=== PATIENT | male | born 1945 | race Caucasian/White ===

== ENCOUNTER 2016-04-09 13:57 | Inpatient (IN) | payer MEDICARE, OTHER ==
--- NOTE | 2016-04-09 14:37 | ER Document Report ---
ED Medical Screen (RME) - General Stated Complaint: VOMITING,CHILLS Notes: chills, fever, and vomiting that started this afternoon emesis x2, no hematemesis but evidence of hematochezia on plavix for previous CVA x3 most recently one year ago I have greeted and performed a rapid initial assessment of this patient. A comprehensive ED assessment and evaluation of the patient, analysis of test results and completion of the medical decision making process will be conducted by additional ED providers. TRAVEL OUTSIDE OF THE [place] IN LAST 30 DAYS: No - Related Data Allergies/Adverse Reactions: No Known Allergies Allergy (Verified 10/26/12 14:14) Past Medical History - Past Medical History Cardiac Medical History: Reports: Hx Hypercholesterolemia, Hx Hypertension Pulmonary Medical History: Reports: Hx COPD Neurological Medical History: Reports: Hx Cerebrovascular Accident Psychiatric Medical History: Reports: Hx Depression Past Surgical History: Reports: Hx Orthopedic Surgery - Back and neck surgery - Immunizations Hx Diphtheria, Pertussis, Tetanus Vaccination: Yes
[2016-04-09 14:59] LABS: HEMOGLOBIN 15.9 g/dL (13.5-17.0); HGB HCT DIFFERENCE -0.3; MEAN CORPUSCULAR HEMOGLOBIN 30.6 pg (27.0-33.4); MEAN CORPUSCULAR HGB CONC 33.1 g/dL (32.0-36.0); MEAN CORPUSCULAR VOLUME 93 fl (80-97); RED BLOOD COUNT 5.19 10^6/uL (4.35-5.55); RED CELL DISTRIBUTION WIDTH 14.5 % (11.5-14.0); WHITE BLOOD COUNT 13.2 10^3/uL (4.0-10.5)
[2016-04-09 15:05] LABS: PARTIAL THROMBOPLASTIN TIME 22.9 SEC (23.5-35.8); PROTHROMBIN TIME 13.6 SEC (11.4-15.4)
[2016-04-09 15:20] LABS: ALANINE AMINOTRANSFERASE 25 U/L (21-72); ALBUMIN 4.6 g/dL (3.5-5.0); ALKALINE PHOSPHATASE 96 U/L (38-126); ANION GAP 12 (5-19); ASPARTATE AMINO TRANSFERASE 17 U/L (17-59); BILIRUBIN,TOTAL 0.9 mg/dL (0.2-1.3); BLOOD UREA NITROGEN 22 mg/dL (7-20); CALCIUM 9.5 mg/dL (8.4-10.2); CARBON DIOXIDE 27 mmol/L (22-30); CHLORIDE 107 mmol/L (98-107); CREATININE RESULT 1.12 mg/dL (0.52-1.25); GLUCOSE 112 mg/dL (75-110); POTASSIUM 4.1 mmol/L (3.6-5.0); SODIUM 146.2 mmol/L (137-145); TOTAL PROTEIN 7.4 g/dL (6.3-8.2)
[2016-04-09 15:30] LABS: ANISOCYTOSIS SLIGHT; BAND NEUTROPHILS % (MANUAL) 9 % (3-5); BASOPHILS % (MANUAL) 0 % (0-2); BURR CELLS SLIGHT; EOSINOPHILS % (MANUAL) 1 % (0-6); LYMPHOCYTES % (MANUAL) 7 % (13-45); TOTAL CELLS COUNTED 100; TOXIC GRANULATION 1+
[2016-04-09] MEDS ORDERED: ONDANSETRON 4 MG TAB.RAPDIS PO ONE (17:30)
[2016-04-09] MEDS ORDERED: NORMAL SALINE 1000 ML 1,000 ML IV ONE (18:07)
--- NOTE | 2016-04-09 18:22 | ER Document Report ---
ED General - General Time seen by provider: 18:02 Mode of Arrival: Ambulatory Information source: Patient, Relative - spouse TRAVEL OUTSIDE OF THE [place] IN LAST 30 DAYS: No - HPI Onset: Other - see HPI note Associated symptoms: Chills, Nausea, Vomiting <ARTURO DENSON - Last Filed: 04/09/16 18:15> <FATUMA RODRIGEZ - Last Filed: 04/09/16 19:50> - General Chief Complaint: Nausea/Vomiting Stated Complaint: VOMITING,CHILLS Notes: Patient is a 70 year old male presenting to the emergency department complaining of chills, nausea, and vomiting. Patient states he vomited x2 and his symptoms were onset at 13:00 today. Patient states he is not nauseous at time of exam. Patient denies any constipation or abdominal pain. Patient is on Plavix. Patient has had 3. Strokes is dysphasic. Patient also has a history of hypertension, hypercholesterolemia, COPD, depression, and Parkinson's disease. Patient has no known allergies. (ARTURO DENSON) - Related Data Allergies/Adverse Reactions: No Known Allergies Allergy (Verified 04/09/16 14:36) Past Medical History - General Information source: Patient, Relative - spouse - Social History Smoking Status: Never Smoker Cigarette use (# per day): No Chew tobacco use (# tins/day): No Frequency of alcohol use: None Drug Abuse: None Family History: Reviewed & Not Pertinent, Hypertension Patient has suicidal ideation: No Patient has homicidal ideation: No - Medical History Medical History: Other - Parkinson's disease - Past Medical History Cardiac Medical History: Reports: Hx Hypercholesterolemia, Hx Hypertension Pulmonary Medical History: Reports: Hx COPD Neurological Medical History: Reports: Hx Cerebrovascular Accident - x3 Psychiatric Medical History: Reports: Hx Depression Past Surgical History: Reports: Hx Orthopedic Surgery - Back and neck surgery - Immunizations Hx Diphtheria, Pertussis, Tetanus Vaccination: Yes Hx Pneumococcal Vaccination: 11/22/14 <ARTURO DENSON - Last Filed: 04/09/16 18:15> Review of Systems - Review of Systems Constitutional: See HPI, Chills EENT: No symptoms reported Cardiovascular: No symptoms reported Respiratory: No symptoms reported Gastrointestinal: See HPI, Nausea, Vomiting. denies: Abdominal pain, Constipation Genitourinary: No symptoms reported Male Genitourinary: No symptoms reported Musculoskeletal: No symptoms reported Skin: No symptoms reported Hematologic/Lymphatic: No symptoms reported Neurological/Psychological: No symptoms reported -: Yes All other systems reviewed and negative <ARTURO DENSON - Last Filed: 04/09/16 18:15> Physical Exam - Vital signs Interpretation: Tachycardic - General General appearance: Appears well, Alert In distress: Mild - HEENT Head: Normocephalic, Atraumatic Eyes: Normal Pupils: PERRL Mucous membranes: Moist - Respiratory Respiratory status: No respiratory distress Chest status: Nontender Breath sounds: Normal Chest palpation: Normal - Cardiovascular Rhythm: Regular, Tachycardia Heart sounds: Normal auscultation Murmur: No - Abdominal Inspection: Normal Distension: No distension Bowel sounds: Normal Tenderness: Nontender, Other - Resonant to percussion Organomegaly: No organomegaly - Back Back: Normal, Nontender - Extremities General upper extremity: Normal inspection, Normal ROM, Normal strength General lower extremity: Normal inspection, Normal ROM, Normal strength. No: Edema - Neurological Neuro grossly intact: Yes Cognition: Normal Orientation: AAOx4 [place] Coma Scale Eye Opening: Spontaneous [place] Coma Scale Verbal: Oriented [place] Coma Scale Motor: Obeys Commands [place] Coma Scale Total: 15 Speech: Normal - Psychological Associated symptoms: Normal affect, Normal mood - Skin Skin Temperature: Warm Skin Moisture: Dry <ARTURO DENSON - Last Filed: 04/09/16 18:15> Course - Laboratory Result Diagrams: 04/09/16 14:40 04/09/16 14:40 <ARTURO DENSON - Last Filed: 04/09/16 18:15> - Laboratory Result Diagrams: 04/09/16 14:40 04/09/16 14:40 <FATUMA RODRIGEZ - Last Filed: 04/09/16 19:50> - Vital Signs Vital signs: Temp Pulse Resp BP Pulse Ox 98.6 F 94 16 139/73 H 94 04/09/16 18:22 04/09/16 18:22 04/09/16 18:22 04/09/16 18:22 04/09/16 18:22 (ARTURO DENSON) (FATUMA RODRIGEZ) - Laboratory Laboratory results interpreted by me: 04/09/16 04/09/16 04/09/16 14:40 14:40 14:40 WBC 13.2 H RDW 14.5 H Seg Neuts % (Manual) 80 H Band Neutrophils % 9 H Lymphocytes % (Manual) 7 L Monocytes % (Manual) 1 L Abs Neuts (Manual) 11.7 H APTT 22.9 L Sodium 146.2 H BUN 22 H Glucose 112 H (ARTURO DENSON) (FATUMA RODRIGEZ) Discharge <ARTURO DENSON - Last Filed: 04/09/16 18:15> - [place]charge [place] [facility] [place] Ad[place] [facility] <FATUMA RODRIGEZ - Last Filed: 04/09/16 19:50> - Discharge Clinical Impression: Pneumonia Qualifiers: Pneumonia type: due to unspecified organism Laterality: right Lung location: lower lobe of lung Qualified Code(s): J18.1 - Lobar pneumonia, unspecified organism Leukocytosis Qualifiers: Leukocytosis type: bandemia Qualified Code(s): D72.825 - Bandemia Fever Qualifiers: Fever type: unspecified Qualified Code(s): R50.9 - Fever, unspecified Condition: Stable Disposition: ADMITTED INPATIENT Scribe Attestation: 04/09/16 19:50 I personally performed the services described in the documentation, reviewed and edited the documentation which was dictated to the scribe in my presence, and it accurately records my words and actions. (FATUMA RODRIGEZ) Scribe Documentation - Scribe Written by Luis Eduardo:: Arturo Denson 04/09/16 18:27 acting as scribe for :: Subhash <ARTURO DENSON - Last Filed: 04/09/16 18:15>
[2016-04-09] MEDS ORDERED: PIPERACILLIN/TAZOBACTAM 3.375 GM VIAL IV ONE (19:44)
[2016-04-09] MEDS ORDERED: AZITHROMYCIN INJ 500 MG VIAL IV ONE (19:45)
[2016-04-09] MEDS ORDERED: CEFTRIAXONE 1 GM/D5W RTU 50 ML IV ONE (19:48)
[2016-04-09] MEDS ORDERED: ACETAMINOPHEN 325 MG TABLET PO ONE (19:50)
[2016-04-10] MEDS ORDERED: ACETAMINOPHEN 325 MG TABLET PO PRN (01:54)
[2016-04-10] MEDS ORDERED: DOCUSATE SODIUM 100 MG CAPSULE PO PRN (01:59)
[2016-04-10 02:19] LABS: MEAN CORPUSCULAR VOLUME 93 fl (80-97)
[2016-04-10 02:30] LABS: ALANINE AMINOTRANSFERASE 29 U/L (21-72); ALKALINE PHOSPHATASE 60 U/L (38-126); ANION GAP 8 (5-19); ASPARTATE AMINO TRANSFERASE 13 U/L (17-59); BILIRUBIN,TOTAL 0.9 mg/dL (0.2-1.3); BLOOD UREA NITROGEN 25 mg/dL (7-20); CALCIUM 8.2 mg/dL (8.4-10.2); CARBON DIOXIDE 26 mmol/L (22-30); CHLORIDE 107 mmol/L (98-107); CHOLESTEROL 116.57 mg/dL (0-200); CREATININE RESULT 1.03 mg/dL (0.52-1.25); Direct HDL 53 mg/dL (>40); GLUCOSE 104 mg/dL (75-110); POTASSIUM 4.1 mmol/L (3.6-5.0); SODIUM 140.7 mmol/L (137-145); TOTAL PROTEIN 5.9 g/dL (6.3-8.2); TRIGLYCERIDES 55 mg/dL (<150)
[2016-04-10 02:41] LABS: DIRECT LDL 42 mg/dL (<100)
[2016-04-10 03:19] LABS: HEMATOCRIT 39.9 % (37.9-51.0); HGB HCT DIFFERENCE -0.6; MEAN CORPUSCULAR HEMOGLOBIN 30.4 pg (27.0-33.4); RED BLOOD COUNT 4.31 10^6/uL (4.35-5.55); WHITE BLOOD COUNT 20.5 10^3/uL (4.0-10.5)
[2016-04-10 03:20] LABS: HEMOGLOBIN 13.1 g/dL (13.5-17.0); MEAN CORPUSCULAR HGB CONC 32.9 g/dL (32.0-36.0); RED CELL DISTRIBUTION WIDTH 14.5 % (11.5-14.0)
[2016-04-10 03:24] LABS: BAND NEUTROPHILS % (MANUAL) 3 % (3-5); BASOPHILS % (MANUAL) 0 % (0-2); EOSINOPHILS % (MANUAL) 1 % (0-6); LYMPHOCYTES % (MANUAL) 7 % (13-45); TOTAL CELLS COUNTED 100
[2016-04-10 03:25] LABS: ANISOCYTOSIS SLIGHT; TOXIC GRANULATION SLIGHT; TOXIC VACUOLATION PRESENT
[2016-04-10] MEDS ORDERED: IBUPROFEN 800 MG TABLET PO PRN (03:42)
--- NOTE | 2016-04-10 09:35 | PDOC H&P ---
History of Present Illness Admission Date/PCP: 04/09/16 20:23 JERRY SCHULTE Patient complains of: Fever with chills, nausea/vomitingx2. History of Present Illness: YADIRA MCCRACKEN is a 70 year old male 70 yr old man with hx of HTN/Hyperlipidemia/CVD s.p CVA/COPD/Parkinson disease/ Osteoarthritis/Vitamin D deficiency/Depression/Ex-smoker who presented to ED on account of fever with chills, nausea/vomitingx2, dyspnea and oxygen saturation of 93% on RA. Chest xray showed right lower lobe infiltrate. He is being admitted for Community acquired pneumonia. Past Medical History Cardiac Medical History: Reports: Hyperlipidema, Hypertension Pulmonary Medical History: Reports: Chronic Obstructive Pulmonary Disease (COPD) Psychiatric Medical History: Reports: Depression Past Surgical History Past Surgical History: Reports: Orthopedic Surgery - Back and neck surgery Social History Smoking Status: Former Smoker Frequency of Alcohol Use: None Hx Recreational Drug Use: No Drugs: None Hx Prescription Drug Abuse: No Family History Family History: Reviewed & Not Pertinent, Hypertension Parental Family History Reviewed: Yes Children Family History Reviewed: Yes Sibling(s) Family History Reviewed.: Yes Medication/Allergy Home Medications: Aspirin [Aspirin EC] 81 mg PO DAILY 10/26/12 Carbidopa/Levodopa [Sinemet Cr 50-200 Tablet] 1 each PO DAILY 10/26/12 Clopidogrel Bisulfate [Plavix 75 mg Tablet] 75 mg PO DAILY 10/26/12 Losartan Potassium [Cozaar 50 mg Tablet] 50 mg PO DAILY #30 tablet 10/05/14 Albuterol Sulfate [Proair HFA] 2 puff IH Q6HP PRN 09/27/15 Cyanocobalamin (Vitamin B-12) [Vitamin B-12] 1,000 mcg PO DAILY 09/27/15 Ergocalciferol (Vitamin D2) [Drisdol] 50,000 units PO WE 09/27/15 Ibuprofen [Motrin 800 mg Tablet] 800 mg PO BID 09/27/15 Multivitamin W-Minerals/Lutein [Vitrum Senior Tablet] 1 each PO DAILY 09/27/15 Sertraline HCl 50 mg PO DAILY 09/27/15 Tiotropium [place] [Spiriva Handihaler 18 mcg/dose (30 Dose)] 1 cap IH DAILY 07/07 Atorvastatin Calcium [Lipitor 20 mg Tablet] 20 mg PO QHS #30 tablet 10/01/15 Allergies/Adverse Reactions: No Known Allergies Allergy (Verified 04/09/16 14:36) Review of Systems All systems: as per PMH Constitutional: PRESENT: anorexia, chills, fever(s), weakness Cardiovascular: PRESENT: dyspnea on exertion Respiratory: PRESENT: cough, dyspnea Gastrointestinal: PRESENT: nausea, vomiting Musculoskeletal: PRESENT: as per HPI Integumentary: PRESENT: as per HPI Neurological: PRESENT: as per HPI Psychiatric: PRESENT: as per HPI Endocrine: PRESENT: as per HPI Hematologic/Lymphatic: PRESENT: as per HPI Physical Exam Vital Signs: Temp Pulse Resp BP Pulse Ox 98.0 F 69 20 142/70 H 98 04/10/16 07:29 04/10/16 07:29 04/10/16 07:29 04/10/16 07:29 04/10/16 07:29 Intake & Output 04/09/16 04/10/16 04/11/16 06:59 06:59 06:59 Intake Total 0 Balance 0 Weight 77.4 kg General appearance: PRESENT: mild distress, well-developed, well-nourished Head exam: PRESENT: atraumatic, normocephalic, other Eye exam: PRESENT: EOMI, PERRLA Mouth exam: PRESENT: moist, neck supple, tongue midline Neck exam: PRESENT: full ROM Respiratory exam: PRESENT: crackles, decreased breath sounds Cardiovascular exam: PRESENT: +S1, +S2 Vascular exam: PRESENT: normal capillary refill GI/Abdominal exam: PRESENT: normal bowel sounds, soft Rectal exam: PRESENT: deferred Neurological exam: PRESENT: alert, oriented to person, oriented to place, oriented to time Psychiatric exam: PRESENT: normal mood Results Laboratory Results: 04/10/16 02:09 04/10/16 02:09 04/09/16 04/10/16 04/10/16 21:30 02:09 02:09 WBC 20.5 H RBC 4.31 L Hgb 13.1 L D Hct 39.9 MCV 93 MCH 30.4 MCHC 32.9 RDW 14.5 H Plt Count 157 Seg Neutrophils % Not Reportable Lymphocytes % Not Reportable Monocytes % Not Reportable Eosinophils % Not Reportable Basophils % Not Reportable Absolute Neutrophils Not Reportable Absolute Lymphocytes Not Reportable Absolute Monocytes Not Reportable Absolute Eosinophils Not Reportable Absolute Basophils Not Reportable Sodium 140.7 Potassium 4.1 Chloride 107 Carbon Dioxide 26 Anion Gap 8 BUN 25 H Creatinine 1.03 Est GFR ( Amer) > 60 Est GFR (Non-Af Amer) > 60 Glucose 104 Lactic Acid 2.5 H Calcium 8.2 L Total Bilirubin 0.9 AST 13 L ALT 29 Alkaline Phosphatase 60 Total Protein 5.9 L Albumin 3.0 L Triglycerides 55 Cholesterol 116.57 LDL Cholesterol Direct 42 VLDL Cholesterol 11.0 HDL Cholesterol 53 04/10/16 02:09 WBC RBC Hgb Hct MCV MCH MCHC RDW Plt Count Seg Neutrophils % Lymphocytes % Monocytes % Eosinophils % Basophils % Absolute Neutrophils Absolute Lymphocytes Absolute Monocytes Absolute Eosinophils Absolute Basophils Sodium Potassium Chloride Carbon Dioxide Anion Gap BUN Creatinine Est GFR ( Amer) Est GFR (Non-Af Amer) Glucose Lactic Acid 1.2 Calcium Total Bilirubin AST ALT Alkaline Phosphatase Total Protein Albumin Triglycerides Cholesterol LDL Cholesterol Direct VLDL Cholesterol HDL Cholesterol Impressions: Acute Abdomen Series 04/09/16 18:11 IMPRESSION: 1. Slightly progressive right base changes. Suspect chronic abnormality here. Superimposed recurrent pneumonia is also possible. 2. No evidence of bowel obstruction or acute abdominopelvic process. Findings as above. Assessment & Plan - Diagnosis (1) Pneumonia Qualifiers: Pneumonia type: due to unspecified organism Laterality: right Lung location: lower lobe of lung Qualified Code(s): J18.1 - Lobar pneumonia, unspecified organism Is this a current diagnosis for this admission?: YesPlan: Ct with oxygen by N/C 2 L/min to keep saturation >92%; Rocephin 1 g daily IV; Azithromycin 500mg daily IV; Tylenol 650 mg q4h prn po; F/u Blood culture. (2) Hypertension Is this a current diagnosis for this admission?: YesPlan: Ct with Losartan 50 mg daily po; 2 g sodium diet. (3) Hyperlipidemia Plan: Ct with Atorvastatin 20 mg qhs po; 200 mg cholesterol diet. (4) COPD (chronic obstructive pulmonary disease) Is this a current diagnosis for this admission?: YesPlan: Ct with ProAir hFA 2 puffs q6h pr; Spiriva 18 mcg daily; oxygen by N/C 2 L/min to keep saturation >92%. (5) CVA (cerebral vascular accident) Is this a current diagnosis for this admission?: YesPlan: Ct with Aspirin 81 mg daily po; Plavix 75 mg daily po; 2 g sodium, low cholesterol diet. (6) Parkinson disease Is this a current diagnosis for this admission?: YesPlan: Ct with Sinemet 50/200 1 daily po. (7) Vitamin D deficiency Is this a current diagnosis for this admission?: YesPlan: Ct with Vitamin D 52230gh weekly po. (8) Osteoarthritis Is this a current diagnosis for this admission?: YesPlan: Ct with Ibuprofen 800 mg BID prn po. (9) Depression Is this a current diagnosis for this admission?: YesPlan: Ct with Zoloft 50 mg daily po. (10) DVT prophylaxis Is this a current diagnosis for this admission?: YesPlan: Ct with Lovenox 40 mg daily SQ; SCD. - Time Time Spent: 30 to 50 Minutes Medications reviewed and adjusted accordingly: Yes Anticipated discharge: Home Within: within 72 hours - Inpatient Certification Medical Necessity: Failure to Improve With Outpatient Therapy, Need Close Monitoring Due to Risk of Patient Decompensation, Need For IV Fluids, Need For Continuous Telemetry Monitoring, Need for IV Antibiotics
[2016-04-10] MEDS: ENOXAPARIN SODIUM INJ 40 MG/0.4 ML DISP.SYRIN SUBCUT SCH ×2 (10:35→10:45)
[2016-04-10] MEDS: LANSOPRAZOLE 30 MG TAB.RAP.DR PO SCH (10:45)
[2016-04-10] MEDS: AZITHROMYCIN 500 MG in DEXTROSE 5%-WATER 250 ML IV SCH (21:40)
[2016-04-10] MEDS: ZOLPIDEM TARTRATE 5 MG TABLET PO PRN (21:41)
[2016-04-10] MEDS: CEFTRIAXONE 1 GM/D5W RTU 1 GM/50 ML RTUPB IV SCH (21:41)
[2016-04-11 06:18] LABS: ABSOLUTE EOSINOPHILS # (AUTO) 0.1 10^3/uL (0.0-0.6); ABSOLUTE LYMPHOCYTES (AUTO) 1.3 10^3/uL (0.5-4.7); ABSOLUTE MONOCYTES (AUTO) 0.7 10^3/uL (0.1-1.4); ABSOLUTE NEUT (AUTO) 8.2 10^3/uL (1.7-8.2); BASOPHILS % (AUTO) 0.4 % (0-2); EOSINOPHILS % (AUTO) 1.1 % (0-6); HEMATOCRIT 37.7 % (37.9-51.0); HEMOGLOBIN 12.9 g/dL (13.5-17.0); LYMPHOCYTES % (AUTO) 12.9 % (13-45); MEAN CORPUSCULAR HEMOGLOBIN 31.2 pg (27.0-33.4); MEAN CORPUSCULAR HGB CONC 34.1 g/dL (32.0-36.0); MEAN CORPUSCULAR VOLUME 91 fl (80-97); MONOCYTES % (AUTO) 6.7 % (3-13); RED BLOOD COUNT 4.13 10^6/uL (4.35-5.55); RED CELL DISTRIBUTION WIDTH 14.2 % (11.5-14.0); SEGMENTED NEUTROPHILS % (AUTO) 78.9 % (42-78); WHITE BLOOD COUNT 10.4 10^3/uL (4.0-10.5)
[2016-04-11 06:30] LABS: ALANINE AMINOTRANSFERASE 25 U/L (21-72); ALBUMIN 3.4 g/dL (3.5-5.0); ALKALINE PHOSPHATASE 63 U/L (38-126); ANION GAP 9 (5-19); ASPARTATE AMINO TRANSFERASE 12 U/L (17-59); BILIRUBIN,TOTAL 0.7 mg/dL (0.2-1.3); BLOOD UREA NITROGEN 18 mg/dL (7-20); CARBON DIOXIDE 25 mmol/L (22-30); CHLORIDE 107 mmol/L (98-107); CREATININE RESULT 0.89 mg/dL (0.52-1.25); GLUCOSE 85 mg/dL (75-110); SODIUM 140.7 mmol/L (137-145)
[2016-04-11] MEDS: LANSOPRAZOLE 30 MG TAB.RAP.DR PO SCH (10:35)
--- NOTE | 2016-04-11 15:40 | PDOC PROGRESS REPORT ---
Subjective Progress Note for:: 04/11/16 Subjective:: Patient is feeling well today ; no fever no chills No chest pain shortness of breath nausea or vomiting He is oxygenating adequately on a nasal cannula His mentation is excellent Physical Exam Vital Signs: Temp Pulse Resp BP Pulse Ox 97.9 F 58 L 20 130/65 H 93 04/11/16 11:29 04/11/16 11:29 04/11/16 11:29 04/11/16 11:29 04/11/16 13:06 Intake & Output 04/10/16 04/11/16 04/12/16 00:59 00:59 00:59 Intake Total 970 745 Balance 970 745 Weight 77.4 kg 77.4 kg General appearance: PRESENT: no acute distress, cooperative, thin - Looks chronically ill, other Head exam: PRESENT: atraumatic, normocephalic Eye exam: PRESENT: conjunctiva pink, EOMI, PERRLA. ABSENT: scleral icterus Neck exam: ABSENT: carotid bruit, JVD, lymphadenopathy, thyromegaly Respiratory exam: PRESENT: clear to auscultation [place]. ABSENT: rales, rhonchi, wheezes Pulses: PRESENT: normal dorsalis pedis pul GI/Abdominal exam: PRESENT: normal bowel sounds, soft. ABSENT: distended, guarding, mass, organolmegaly, rebound, tenderness Extremities exam: ABSENT: calf tenderness, clubbing, pedal edema Neurological exam: PRESENT: alert, awake, oriented to person, oriented to place , oriented to time Results Laboratory Results: 04/11/16 05:41 04/11/16 05:41 04/11/16 04/11/16 05:41 05:41 WBC 10.4 RBC 4.13 L Hgb 12.9 L Hct 37.7 L MCV 91 MCH 31.2 MCHC 34.1 RDW 14.2 H Plt Count 168 Seg Neutrophils % 78.9 H Lymphocytes % 12.9 L Monocytes % 6.7 Eosinophils % 1.1 Basophils % 0.4 Absolute Neutrophils 8.2 Absolute Lymphocytes 1.3 Absolute Monocytes 0.7 Absolute Eosinophils 0.1 Absolute Basophils 0.0 Sodium 140.7 Potassium 4.0 Chloride 107 Carbon Dioxide 25 Anion Gap 9 BUN 18 Creatinine 0.89 Est GFR ( Amer) > 60 Est GFR (Non-Af Amer) > 60 Glucose 85 Calcium 9.0 Total Bilirubin 0.7 AST 12 L ALT 25 Alkaline Phosphatase 63 Total Protein 6.0 L Albumin 3.4 L 04/09/16 22:45 Blood Culture - Preliminary Blood NO GROWTH IN 24 HOURS 04/09/16 21:30 Blood Culture - Preliminary Blood NO GROWTH IN 24 HOURS Impressions: Acute Abdomen Series 04/09/16 18:11 IMPRESSION: 1. Slightly progressive right base changes. Suspect chronic abnormality here. Superimposed recurrent pneumonia is also possible. 2. No evidence of bowel obstruction or acute abdominopelvic process. Findings as above. Assessment & Plan - Diagnosis (1) History of CVA (cerebrovascular accident) Is this a current diagnosis for this admission?: YesPlan: With residual deficits Patient's mentation is intact he is bedbound cared for by his ; (2) Gallstones Is this a current diagnosis for this admission?: YesPlan: The LFTs were normal on admission We will order an ultrasound of the right upper quadrant to exclude an acute cholecystitis (3) CVA (cerebral vascular accident) Qualifiers: Laterality of affected vessel: unspecified Is this a current diagnosis for this admission?: Yes (4) Pneumonia Qualifiers: Pneumonia type: due to unspecified organism Laterality: right Lung location: lower lobe of lung Qualified Code(s): J18.1 - Lobar pneumonia, unspecified organism Is this a current diagnosis for this admission?: YesPlan: Recurrent pneumonia We will obtained a speech evaluation on Wednesday to exclude recurrent aspirations - Time Time Spent with patient: Overall patient's condition is extremely stable Time Spent with patient: 25-34 minutes
[2016-04-11] MEDS: AZITHROMYCIN 500 MG in DEXTROSE 5%-WATER 250 ML IV SCH (22:01)
[2016-04-11] MEDS: CEFTRIAXONE 1 GM/D5W RTU 1 GM/50 ML RTUPB IV SCH (22:01)
[2016-04-11] MEDS: ZOLPIDEM TARTRATE 5 MG TABLET PO PRN (22:02)
[2016-04-12 06:59] LABS: ABSOLUTE BASOPHILS # (AUTO) 0.1 10^3/uL (0.0-0.2); ABSOLUTE EOSINOPHILS # (AUTO) 0.2 10^3/uL (0.0-0.6); ABSOLUTE LYMPHOCYTES (AUTO) 1.6 10^3/uL (0.5-4.7); ABSOLUTE MONOCYTES (AUTO) 0.6 10^3/uL (0.1-1.4); ABSOLUTE NEUT (AUTO) 5.7 10^3/uL (1.7-8.2); BASOPHILS % (AUTO) 0.9 % (0-2); EOSINOPHILS % (AUTO) 2.2 % (0-6); HEMATOCRIT 38.9 % (37.9-51.0); HEMOGLOBIN 13.2 g/dL (13.5-17.0); HGB HCT DIFFERENCE 0.7; LYMPHOCYTES % (AUTO) 19.3 % (13-45); MEAN CORPUSCULAR HEMOGLOBIN 31.1 pg (27.0-33.4); MEAN CORPUSCULAR VOLUME 91 fl (80-97); MONOCYTES % (AUTO) 7.6 % (3-13); RED BLOOD COUNT 4.25 10^6/uL (4.35-5.55); RED CELL DISTRIBUTION WIDTH 14.1 % (11.5-14.0); WHITE BLOOD COUNT 8.2 10^3/uL (4.0-10.5)
[2016-04-12 07:23] LABS: ALANINE AMINOTRANSFERASE 19 U/L (21-72); ALBUMIN 3.6 g/dL (3.5-5.0); ALKALINE PHOSPHATASE 64 U/L (38-126); ANION GAP 10 (5-19); ASPARTATE AMINO TRANSFERASE 13 U/L (17-59); BILIRUBIN,TOTAL 0.7 mg/dL (0.2-1.3); BLOOD UREA NITROGEN 18 mg/dL (7-20); CARBON DIOXIDE 25 mmol/L (22-30); CHLORIDE 106 mmol/L (98-107); CREATININE RESULT 0.82 mg/dL (0.52-1.25); GLUCOSE 90 mg/dL (75-110); SODIUM 141.1 mmol/L (137-145); TOTAL PROTEIN 6.1 g/dL (6.3-8.2)
[2016-04-12 07:27] LABS: POTASSIUM 3.9 mmol/L (3.6-5.0)
[2016-04-12] MEDS: ENOXAPARIN SODIUM INJ 40 MG/0.4 ML DISP.SYRIN SUBCUT SCH (08:00)
[2016-04-12] MEDS: LANSOPRAZOLE 30 MG TAB.RAP.DR PO SCH (08:00)
--- NOTE | 2016-04-12 17:07 | PDOC PROGRESS REPORT ---
Subjective Progress Note for:: 04/12/16 Subjective:: no complaints doing well no SOB or fever Physical Exam Vital Signs: Temp Pulse Resp BP Pulse Ox 98.6 F 67 18 113/57 L 94 04/12/16 12:37 04/12/16 12:37 04/12/16 12:37 04/12/16 12:37 04/12/16 12:37 Intake & Output 04/11/16 04/12/16 04/13/16 00:59 00:59 00:59 Intake Total 970 1195 520 Balance 970 1195 520 Weight 77.4 kg 76 kg Results Laboratory Results: 04/12/16 06:31 04/12/16 06:31 04/12/16 04/12/16 06:31 06:31 WBC 8.2 RBC 4.25 L Hgb 13.2 L Hct 38.9 MCV 91 MCH 31.1 MCHC 34.0 RDW 14.1 H Plt Count 167 Seg Neutrophils % 70.0 Lymphocytes % 19.3 Monocytes % 7.6 Eosinophils % 2.2 Basophils % 0.9 Absolute Neutrophils 5.7 Absolute Lymphocytes 1.6 Absolute Monocytes 0.6 Absolute Eosinophils 0.2 Absolute Basophils 0.1 Sodium 141.1 Potassium 3.9 Chloride 106 Carbon Dioxide 25 Anion Gap 10 BUN 18 Creatinine 0.82 Est GFR ( Amer) > 60 Est GFR (Non-Af Amer) > 60 Glucose 90 Calcium 9.0 Total Bilirubin 0.7 AST 13 L ALT 19 L Alkaline Phosphatase 64 Total Protein 6.1 L Albumin 3.6 Impressions: Acute Abdomen Series 04/09/16 18:11 IMPRESSION: 1. Slightly progressive right base changes. Suspect chronic abnormality here. Superimposed recurrent pneumonia is also possible. 2. No evidence of bowel obstruction or acute abdominopelvic process. Findings as above. Abdomen Ultrasound 04/12/16 00:00 IMPRESSION: Re- demonstration of cholelithiasis without evidence of cholecystitis. Given differences in modality, right renal findings are likewise similar to that seen on comparison CT dated 01/24/2013 Assessment & Plan - Diagnosis (1) History of CVA (cerebrovascular accident) Is this a current diagnosis for this admission?: Yes (2) Gallstones Is this a current diagnosis for this admission?: YesPlan: no evidence of acute cholecystitis (3) CVA (cerebral vascular accident) Qualifiers: Laterality of affected vessel: unspecified Is this a current diagnosis for this admission?: Yes (4) Pneumonia Qualifiers: Pneumonia type: due to unspecified organism Laterality: right Lung location: lower lobe of lung Qualified Code(s): J18.1 - Lobar pneumonia, unspecified organism Is this a current diagnosis for this admission?: YesPlan: d/c ceftriaxone initiate vantin 200 mg po bid Patient will have cookie swallow in am to evaluate him for dysphagia is describing cough with meals ; - Time Time Spent with patient: 25-34 minutes Within: within 24 hours
[2016-04-12] MEDS: AZITHROMYCIN 500 MG in DEXTROSE 5%-WATER 250 ML IV SCH (22:02)
[2016-04-12] MEDS: ZOLPIDEM TARTRATE 5 MG TABLET PO PRN (22:03)
[2016-04-12] MEDS ORDERED: CEFPODOXIME 200 MG TABLET PO ONE (22:28)
[2016-04-12] MEDS: CEFPODOXIME 200 MG TABLET PO SCH (22:47)
[2016-04-13 06:11] LABS: ABSOLUTE BASOPHILS # (AUTO) 0.1 10^3/uL (0.0-0.2); ABSOLUTE EOSINOPHILS # (AUTO) 0.2 10^3/uL (0.0-0.6); ABSOLUTE LYMPHOCYTES (AUTO) 1.6 10^3/uL (0.5-4.7); ABSOLUTE MONOCYTES (AUTO) 0.6 10^3/uL (0.1-1.4); ABSOLUTE NEUT (AUTO) 5.7 10^3/uL (1.7-8.2); BASOPHILS % (AUTO) 0.8 % (0-2); EOSINOPHILS % (AUTO) 2.5 % (0-6); HEMATOCRIT 38.4 % (37.9-51.0); HEMOGLOBIN 13.3 g/dL (13.5-17.0); HGB HCT DIFFERENCE 1.5; LYMPHOCYTES % (AUTO) 19.1 % (13-45); MEAN CORPUSCULAR HEMOGLOBIN 30.9 pg (27.0-33.4); MEAN CORPUSCULAR HGB CONC 34.8 g/dL (32.0-36.0); MEAN CORPUSCULAR VOLUME 89 fl (80-97); MONOCYTES % (AUTO) 7.7 % (3-13); RED BLOOD COUNT 4.31 10^6/uL (4.35-5.55); RED CELL DISTRIBUTION WIDTH 14.1 % (11.5-14.0); SEGMENTED NEUTROPHILS % (AUTO) 69.9 % (42-78); WHITE BLOOD COUNT 8.1 10^3/uL (4.0-10.5)
[2016-04-13 06:50] LABS: ALANINE AMINOTRANSFERASE 25 U/L (21-72); ALBUMIN 3.1 g/dL (3.5-5.0); ALKALINE PHOSPHATASE 64 U/L (38-126); ANION GAP 11 (5-19); ASPARTATE AMINO TRANSFERASE 15 U/L (17-59); BILIRUBIN,TOTAL 0.7 mg/dL (0.2-1.3); BLOOD UREA NITROGEN 20 mg/dL (7-20); CALCIUM 9.1 mg/dL (8.4-10.2); CARBON DIOXIDE 23 mmol/L (22-30); CHLORIDE 106 mmol/L (98-107); CREATININE RESULT 0.83 mg/dL (0.52-1.25); GLUCOSE 90 mg/dL (75-110); SODIUM 139.6 mmol/L (137-145); TOTAL PROTEIN 6.2 g/dL (6.3-8.2)
--- NOTE | 2016-04-13 08:53 | ST Inp Modified Barium Swallow ---
Medical Diagnosis - Medical Diagnoses Medical Diagnosis Description & ICD-10 Code(s): dysphagia, recurrent PNA - ICD-10 Tx Diagnosis Coding (1) Dysphagia, oropharyngeal phase ICD-10 Code(s): R13.12 - DYSPHAGIA, OROPHARYNGEAL PHASE (2) Dysphagia, pharyngeal phase ICD-10 Code(s): R13.13 - DYSPHAGIA, PHARYNGEAL PHASE ST Inpatient MBS - General Date: 04/13/16 Date of Onset: 04/09/16 - History History Obtained From: Patient - per EMR -: Medical - Per EMR pt significant for; PNA, fever, right lower lobe infiltrate , CVA, Parkinson's disesase. MBSS ordered by MD for dysphagia and recurrent PNA. Abdominal series shows slightly progressive right base changes suspect chronic abnormality. superimposed recurrent PNA, no evidence of bowel obstruction. PMHx: HTN, CVA, COPD, parkinson's disease, osteoarthritis, depression. MBSS previously completed on 10/30/14 which recommended mech soft ground meats and nectar thick liquids with safe feeding strategies and swallowing maneuvers. Medications: Medications Reviewed Allergies: Refer to medical record - Subjective Current Nutritional Means: PO Current PO Diet: Regular Current Symptoms: Coughing, Pneumonia Pain: 0/5 - Objective Assessment: Upright, Left Lateral - Food Trials Food Trials Used: Thin liquids, Honey-thickened liquids, [place] thick liquids, Pureed, Soft solids The Patient: fed by ST - Assessment Labial Function: Impaired - impaired seal Lingual Function: Within Functional Limits Mandibular Function: Within Functional Limits Dentition: Partial Velo-Pharyngeal Function: Unremarkable Laryngeal Function: Volitional Swallow, Weak Cough, weak voicing - aphonic at times - Pharyngeal Stage Initiation of Pharyngeal Stage: Delayed Reflex Delay Time (seconds): 1 Decreased Laryngeal Elevation: Yes - mild-moderate Reduced Velo-Pharyngeal Closure: no Reduced Pressure Generation: Yes - mild-moderate Reduced Tongue Base Retraction: Yes - moderate Pre-Swallowing Pooling in Valleculae: Mild Pre-Swallowing Pooling in Pyriforms: Mild - trace Reduced Thyro-Hyiod Approximation: Yes - mild-moderate Reduced Epiglottic Excursion: Yes - moderate-severe Reduced Pharyngeal Peristalsis: Yes - mild Post Swallow Residuals in Valleculae: Moderate - mild-moderate Post Swallow Residuals in Pyriforms: None - Impression/Summary Laryngeal Penetration: Yes, Deep, Delayed cough, during swallow Tracheal Aspiration: yes, deep, delayed cough, during swallow Effective Compensatory Strategies: hard swallow - on dry swallow Ineffective Compensatory Strategies: chin tuck, throat clear & reswallow Compensatory Strategies: aspiration observed with chin tuck Patient Presents With: Pharyngeal stage dysph., Oral-Pharyngeal dysph. Risk of Aspiration: Severe - moderate-severe - Recommendations Dysphagia Therapy with MANAGER [employer]: Yes, Inpatient, Home Health Recommended Techniques: Fully Upright During Meal, Small Bites and Sips Supervision: requires assistance Other Recommendations: 1) DIET: recommend mechanical soft ground meat and honey thick liquids by spoon sip only. 2) Dry swallow after sips of honey thick liquids. 3) Aspiration precautions. 4) Recommend ST while admitted in hospital. 5) Recommend home health speech therapy after discharge. SUMMARY: Pt presents with a moderate-severe oropharyngeal dysphagia characterized by impaired labial seal, reduced base of tongue, reduced epiglottic inversion, reduced laryngeal elevation, and reduced hyolaryngeal excursion resulting aspiration of thin and nectar by spoon and mild-moderate residuals of liquids pooling at the level of the valleculae. Pt presents with weak ineffective delayed cough. Pt is at high risk of aspiration on any PO diet, however likely safest PO diet is mech soft ground meats and honey thick liquids-by spoon only. ST spoke with pt's who wishes to follwo recommendations for mech soft ground and honey thick liquids by spoon sip. However, it is noted, pt has indicated that he "does not like" nectar thick liquids (which were recommended in past) and pt self upgraded diet to thin liquids despite recommendations. ST paged to [facility] phone to discuss recommendations-no answer. - Time Total Time: 20 Total Timed Minutes: 0 ST F.L. Impairment Category - Rationale Based On Rationale Based On: Clin Find., Obj Measures - Swallowing Current G8996: CL 60-79% Impaired Goal G8997: CK 40-59% Impaired Discharge G8998: None - Motor Speech Current G8999: None Goal G9186: None Discharge G9158: None
[2016-04-13] MEDS: LANSOPRAZOLE 30 MG TAB.RAP.DR PO SCH (09:30)
[2016-04-13] MEDS: ENOXAPARIN SODIUM INJ 40 MG/0.4 ML DISP.SYRIN SUBCUT SCH (09:30)
[2016-04-13] MEDS: CEFPODOXIME 200 MG TABLET PO SCH (09:30)
--- NOTE | 2016-04-13 12:58 | PDOC DISCHARGE SUMMARY ---
General - Admit/Disc Date/PCP Admission Date/Primary Care Provider: 04/09/16 20:23 JERRY SCHULTE Discharge Date: 04/13/16 - Discharge Diagnosis (1) Pneumonia Is this a current diagnosis for this admission?: Yes (2) Hypertension Is this a current diagnosis for this admission?: Yes (4) COPD (chronic obstructive pulmonary disease) Is this a current diagnosis for this admission?: Yes (5) CVA (cerebral vascular accident) Is this a current diagnosis for this admission?: Yes (6) Parkinson disease Is this a current diagnosis for this admission?: Yes (7) Vitamin D deficiency Is this a current diagnosis for this admission?: Yes (8) Osteoarthritis Is this a current diagnosis for this admission?: Yes (9) Depression Is this a current diagnosis for this admission?: Yes (10) DVT prophylaxis Is this a current diagnosis for this admission?: Yes - Additional Information Discharge Diet: Other (Comments) - Mechanical soft ground meat and honey thick liquid by spoon only. Discharge Activity: Activity As Tolerated Home Medications: Aspirin [Aspirin EC] 81 mg PO DAILY 10/26/12 Carbidopa/Levodopa [Sinemet Cr 50-200 Tablet] 1 each PO DAILY 10/26/12 Clopidogrel Bisulfate [Plavix 75 mg Tablet] 75 mg PO DAILY 10/26/12 Losartan Potassium [Cozaar 50 mg Tablet] 50 mg PO DAILY #30 tablet 10/05/14 Albuterol Sulfate [Proair HFA] 2 puff IH Q6HP PRN 09/27/15 Cyanocobalamin (Vitamin B-12) [Vitamin B-12] 1,000 mcg PO DAILY 09/27/15 Ergocalciferol (Vitamin D2) [Drisdol] 50,000 units PO WE 09/27/15 Ibuprofen [Motrin 800 mg Tablet] 800 mg PO BID 09/27/15 Multivitamin W-Minerals/Lutein [Vitrum Senior Tablet] 1 each PO DAILY 09/27/15 Sertraline HCl 50 mg PO DAILY 09/27/15 Tiotropium [place] [Spiriva Handihaler 18 mcg/dose (30 Dose)] 1 cap IH DAILY 07/07 Atorvastatin Calcium [Lipitor 20 mg Tablet] 20 mg PO QHS #30 tablet 10/01/15 Azithromycin 500 mg PO DAILY #7 tablet 04/13/16 Cefpodoxime Proxetil [Vantin 200 mg Tablet] 1 tab PO Q12 #14 tab 04/13/16 History of Present Illness History of Present Illness: YADIRA MCCRACKEN is a 70 year old male 70 yr old man with hx of HTN/Hyperlipidemia/CVD s.p CVA/COPD/Parkinson disease/ Osteoarthritis/Vitamin D deficiency/Depression/Ex-smoker who presented to ED on account of fever with chills, nausea/vomitingx2, dyspnea and oxygen saturation of 93% on RA. Chest xray showed right lower lobe infiltrate. He is being admitted for Community acquired pneumonia. Hospital Course Hospital Course: 70year old man who was admitted for the above named diagnoses. His hospital course was unremarkable except that he was on Rocephin and Azithromycin and later switched to Vantin PO. His blood cultures was negative after 72 hours. On suspicion of possible aspiration due to residual dysphagia from previous CVA, he had cookie swallow evaluation and recommendation was mechanical soft ground meat and honey thick liquid by spoon only; aspiration precautions and speech therapy on outpatient. He is stable for discharge and and will f/u with me within 1 week for transition of care and to make arrangement for out patient speech therapy. Physical Exam Vital Signs: Temp Pulse Resp BP Pulse Ox 99.3 F 62 20 141/61 H 91 L 04/13/16 03:36 04/13/16 07:00 04/13/16 03:36 04/13/16 03:36 04/13/16 03:36 Intake & Output 04/12/16 04/13/16 04/14/16 06:59 06:59 06:59 Intake Total 1010 885 Balance 1010 885 Weight 76 kg 76.5 kg General appearance: PRESENT: no acute distress, well-developed, well-nourished Head exam: PRESENT: atraumatic, normocephalic Eye exam: PRESENT: EOMI, PERRLA Mouth exam: PRESENT: moist Respiratory exam: PRESENT: decreased breath sounds Cardiovascular exam: PRESENT: +S1, +S2 Pulses: PRESENT: +2 pedal pulses bilateral GI/Abdominal exam: PRESENT: normal bowel sounds, soft Rectal exam: PRESENT: deferred Neurological exam: PRESENT: alert, awake, oriented to person, oriented to place , oriented to time Psychiatric exam: PRESENT: normal mood Results Laboratory Results: 04/13/16 05:39 04/13/16 05:39 04/13/16 04/13/16 05:39 05:39 WBC 8.1 RBC 4.31 L Hgb 13.3 L Hct 38.4 MCV 89 MCH 30.9 MCHC 34.8 RDW 14.1 H Plt Count 193 Seg Neutrophils % 69.9 Lymphocytes % 19.1 Monocytes % 7.7 Eosinophils % 2.5 Basophils % 0.8 Absolute Neutrophils 5.7 Absolute Lymphocytes 1.6 Absolute Monocytes 0.6 Absolute Eosinophils 0.2 Absolute Basophils 0.1 Sodium 139.6 Potassium 4.0 Chloride 106 Carbon Dioxide 23 Anion Gap 11 BUN 20 Creatinine 0.83 Est GFR ( Amer) > 60 Est GFR (Non-Af Amer) > 60 Glucose 90 Calcium 9.1 Total Bilirubin 0.7 AST 15 L ALT 25 Alkaline Phosphatase 64 Total Protein 6.2 L Albumin 3.1 L Impressions: Acute Abdomen Series 04/09/16 18:11 IMPRESSION: 1. Slightly progressive right base changes. Suspect chronic abnormality here. Superimposed recurrent pneumonia is also possible. 2. No evidence of bowel obstruction or acute abdominopelvic process. Findings as above. Abdomen Ultrasound 04/12/16 00:00 IMPRESSION: Re- demonstration of cholelithiasis without evidence of cholecystitis. Given differences in modality, right renal findings are likewise similar to that seen on comparison CT dated 01/24/2013 Plan Time Spent: Greater than 30 Minutes
[2016-04-13 13:15] VITALS: BP 137/71
== END 2016-04-13 14:06 | disposition home or self-care (01) | DRG 195 ==
LOC: ER 13:57 → EH 20:23 → 3S 04-10
PROVIDERS: ADMIT Internal Medicine; ATTEND Internal Medicine
DX: J18.1 Lobar pneumonia, unspecified organism (principal); I10 Essential (primary) hypertension; J44.9 Chronic obstructive pulmonary disease, unspecified; R11.10 Vomiting, unspecified; E78.5 Hyperlipidemia, unspecified; D72.825 Bandemia; E55.9 Vitamin D deficiency, unspecified; Z87.891 Personal history of nicotine dependence; Z79.01 Long term (current) use of anticoagulants; Z86.73 Personal history of transient ischemic attack (TIA), and cerebral infarction without residual deficits
CPT/HCPCS: 36415; 74022; 74230; 76705; 80053; 80061; 83605; 85025; 85610; 85730; 87040; 99285; G8996-GN; G8997-GN; J0456; J0696; J1650; J7030; J7060; S0119